=== PATIENT | female | born 1965 | race Caucasian/White ===

== ENCOUNTER → 2016-05-10 | Outpatient (CLI) | payer BC | END | disposition home or self-care (01) | LOC: RES 12:52 | DX: J45.909 Unspecified asthma, uncomplicated (principal) | CPT/HCPCS: 94010; 94070; 94726; 94729 ==

== ENCOUNTER → 2017-04-09 | Outpatient (CLI) | payer BC ==
[2017-04-09 17:41] LABS: CSF PROTEIN 58 mg/dL (15-45)
[2017-04-09 17:47] LABS: APPEARANCE CLEAR/COLORLESS; CSF TUBE NUMBER TUBE #4; GLUCOSE, CSF 67 mg/dL (40-80); RED CELL COUNT 1 /MM^3 (0-1); WHITE CELL COUNT 0 /MM^3 (0-5)
[2017-04-09 17:49] LABS: CSF EOSINOPHILS ND % (0-25); MONONUCLEAR WBC'S ND % (50-90); POLYNUCLEAR WBC'S ND % (0-3)
[2017-04-10 11:22] LABS: TREPONEMA ANTIBODY NEGATIVE (NEGATIVE)
[2017-04-12 17:42] LABS: Albumin, CSF 31.4 mg/dL (8.0-42.0); Albumin, Serum 4.4 g/dL (3.5-4.9); IgG Index, CSF 0.31 index (<0.66); IgG, CSF 2.3 mg/dL (0.8-7.7); IgG, Serum 1030 mg/dL (694-1618); Synthesis Rate IgG, CSF -8.6 mg/24 h (-9.9-3.3)
== END | disposition home or self-care (01) ==
LOC: RAD 14:50
PROVIDERS: Physician Assistant
PROC: 009U3ZZ Drainage of Spinal Canal, Percutaneous Approach (ICD-10-PCS; principal; 2017-04-09)
DX: G37.9 Demyelinating disease of central nervous system, unspecified (principal)
CPT/HCPCS: 62270; 77003; 82040 90; 82042 90; 82164 90; 82784 90; 82945; 83873 90; 83916 90; 84157; 86592 90; 86780; 87070; 87205; 88108; 89051